=== PATIENT | female | born 1990 | race Caucasian/White ===

== ENCOUNTER 2020-10-24 21:26 | Emergency (ER) | payer OTHER ==
[2020-10-24 23:56] LABS: HEMOGLOBIN 14.4 gm/dl (12.3-15.3); RED BLOOD COUNT 4.46 M/UL (4.00-5.10); WHITE BLOOD COUNT 9.3 K/UL (4.5-11.0)
[2020-10-25 00:42] LABS: BUN/CREATININE RATIO 27 (0-10)
== END 2020-10-25 02:25 | disposition home or self-care (01) ==
LOC: ER1 21:26
PROVIDERS: Emergency Medicine
DX: R00.2 Palpitations (principal); F17.200 Nicotine dependence, unspecified, uncomplicated; Z88.8 Allergy status to other drugs, medicaments and biological substances
CPT/HCPCS: 71045; 80053; 82550; 82553; 83735; 83874; 84439; 84443; 84484; 84703; 85025; 85379; 93005; 99285